=== PATIENT | female | born 1965 | race African-American/Black ===

== ENCOUNTER 2019-02-02 09:39 | Emergency (ER) | payer MEDICARE, MEDICAID ==
[~2019-02-02] VITALS: Ht 170.2 cm; Wt 126.0 kg
[2019-02-02] MEDS ORDERED: CLOP75TA16 PO (09:46)
[2019-02-02 11:45] VITALS: BP 138/61
[2019-02-02] MEDS ORDERED: KETOROLAC 30MG/ML VIAL IV ONE (11:45)
[2019-02-02] MEDS ORDERED: METOCLOPRAMIDE HCL 10MG TABLET PO ONE (11:45)
[2019-02-02] MEDS ORDERED: METOCLOPRAMIDE HCL 10MG/2ML VIAL IV ONE (11:45)
[2019-02-02] MEDS ORDERED: IBUPROFEN 800MG TABLET PO ONE (11:45)
[2019-02-02] MEDS ORDERED: ACETAMINOPHEN 325MG TABLET PO ONE (12:00)
== END 2019-02-02 12:23 | disposition home or self-care (01) ==
LOC: ER 09:39
DX: S09.8XXA Other specified injuries of head, initial encounter (principal); E11.9 Type 2 diabetes mellitus without complications; I10 Essential (primary) hypertension; Z86.73 Personal history of transient ischemic attack (TIA), and cerebral infarction without residual deficits; Z79.899 Other long term (current) drug therapy; W10.9XXA Fall (on) (from) unspecified stairs and steps, initial encounter; Y93.01 Activity, walking, marching and hiking; Y92.89 Other specified places as the place of occurrence of the external cause; Y99.8 Other external cause status
CPT/HCPCS: 70450; 82962; 99284; J8597

== ENCOUNTER 2024-03-28 02:02 | Emergency (ER) | payer OTHER, MEDICAID ==
[~2024-03-28] VITALS: Ht 165.1 cm; Wt 114.0 kg
[~2024-03-28 02:02] MED LIST: CLOP-31 PO; KEPP500 PO
[2024-03-28 02:07] VITALS: O2SAT 99
[2024-03-28] MEDS ORDERED: MORPHINE SULFATE 4 MG/ML INJ (FOR IV/IM USE) IV STA (02:20)
[2024-03-28] MEDS ORDERED: SODIUM CHLORIDE 0.9% 1,000 ML IV ONE (02:30)
[2024-03-28] MEDS: MORPHINE SULFATE 4 MG/ML INJ (FOR IV/IM USE) IV NR (06:00)
[2024-03-28 06:21] LABS: INR 1.1; PROTHROMBIN TIME 11.8 sec (9.6-11.0)
[2024-03-28 06:28] LABS: BASOPHILS % 1.1 % (0.0-2.0); EOSINOPHILS % 1.2 % (0.0-5.0); HEMATOCRIT. 29.5 % (36.0-48.0); HEMOGLOBIN. 9.5 g/dL (12.0-16.0); MEAN CORPUSCULAR HEMOGLOBIN 27.4 pg (28.0-32.0); MEAN CORPUSCULAR HGB CONC 32.2 g/dL (31.0-37.0); MEAN CORPUSCULAR VOLUME 85.2 fL (81.0-99.0); MEAN PLATELET VOLUME 8.2 fl (7.4-10.4); MONOCYTES % 11.3 % (2.0-8.0); NEUTROPHILS % 72.4 % (40.0-76.0); PLATELET 275 x1000/uL (130-400); RED BLOOD CELL COUNT 3.47 mill/uL (4.2-5.4); RED CELL DISTRIBUTION WIDTH 19.1 % (11.6-14.6); WHITE BLOOD COUNT 7.5 x1000/uL (4.5-11.0)
[2024-03-28 06:31] LABS: CARBON DIOXIDE 28 mEq/L (21-32); CHLORIDE 103 mEq/L (98-107); POTASSIUM 3.7 mEq/L (3.5-5.1); SODIUM 140 mEq/L (136-145)
[2024-03-28 06:32] LABS: CALCIUM 8.9 mg/dL (8.7-10.4)
[2024-03-28 06:36] LABS: GLUCOSE 172 mg/dL (70-105)
[2024-03-28 06:37] LABS: UREA NITROGEN BLOOD 18 mg/dL (9-23)
[2024-03-28 06:38] LABS: ALANINE AMINOTRANSFERASE 9 IU/L (10-49); ALBUMIN 3.6 g/dL (3.2-4.8); ASPARTATE AMINOTRANSFERASE 15 IU/L (<34)
[2024-03-28 06:39] LABS: BILIRUBIN DIRECT 0.2 mg/dL (<=3.0); BILIRUBIN TOTAL 0.4 mg/dL (0.1-1.0); PROTEIN TOTAL 6.4 g/dL (6.0-8.3)
[2024-03-28 07:17] LABS: CREATININE 3.6 mg/dL (0.6-1.0)
[2024-03-28 07:21] LABS: TROPONIN I HIGH SENSITIVITY 161 ng/L (3.0-34)
[2024-03-28 11:09] VITALS: BP 110/52; PULSE 96; RESP 16; TEMP 98.6
== END 2024-03-28 11:25 | disposition home or self-care (01) ==
LOC: ER 02:02
DX: R10.9 Unspecified abdominal pain (principal); E11.9 Type 2 diabetes mellitus without complications; I10 Essential (primary) hypertension; J45.909 Unspecified asthma, uncomplicated; Z88.6 Allergy status to analgesic agent; Z86.73 Personal history of transient ischemic attack (TIA), and cerebral infarction without residual deficits; W06.XXXA Fall from bed, initial encounter; Y93.9 Activity, unspecified; Y92.89 Other specified places as the place of occurrence of the external cause; Y99.8 Other external cause status
CPT/HCPCS: 99285; 70450; 96374; 71045; 80076; 80048; 83690; 85025; 85610; 84484; 36415; 74176; 93005; J2270; J7030

== ENCOUNTER 2024-06-13 08:46 | Inpatient (IN) | payer OTHER, MEDICAID, MEDICARE ==
[2024-06-13] VITALS (12 sets, daily range): BP systolic 80–150; BP diastolic 45–129; PULSE 90–126; RESP 21–37; TEMP 36.6696–37.72524; O2SAT 97–100
[~2024-06-13] VITALS: Ht 152.4 cm; Wt 82.1 kg
[~2024-06-13 08:46] MED LIST changes: +AMIT10TA6 PO; +APIX5TAB PO; +ATOR40TA70 PO; +CARV3.1242 PO; -CLOP-31 PO; +FURO80TA3 PO; -KEPP500 PO; +LEVE500T19 PO
[2024-06-13] MEDS ORDERED: LIDOCAINE HCL 1% 10 MG/ML 10ML VIAL ONE (10:32)
[2024-06-13] MEDS: LORAZEPAM 0.5MG TABLET PO ONE (12:13)
[2024-06-13 12:33] LABS: CHLORIDE 109 mEq/L (98-107); POTASSIUM 5.9 mEq/L (3.5-5.1); SODIUM 137 mEq/L (136-145)
[2024-06-13 12:34] LABS: CARBON DIOXIDE 19 mEq/L (21-32)
[2024-06-13 12:35] LABS: CALCIUM 8.7 mg/dL (8.7-10.4)
[2024-06-13 12:39] LABS: CREATININE 4.3 mg/dL (0.6-1.0); GLUCOSE 160 mg/dL (70-105); UREA NITROGEN BLOOD 13 mg/dL (9-23)
[2024-06-13 12:55] LABS: TROPONIN I HIGH SENSITIVITY 139 ng/L (3.0-34)
[2024-06-13] MEDS: DEXTROSE 50% WATER 50ML SYRINGE IV ONE (14:04)
[2024-06-13] MEDS: ALBUTEROL (0.083%) 2.5MG/3ML NEB HHN ONE (14:05)
[2024-06-13] MEDS: INSULIN REGULAR (HUMULIN R) 1000UNITS/10ML VIAL IV ONE (14:10)
[2024-06-13 14:30] LABS: PROTHROMBIN TIME 11.4 sec (9.6-11.0)
[2024-06-13 14:46] LABS: HEMATOCRIT. 34.6 % (36.0-48.0); HEMOGLOBIN. 10.9 g/dL (12.0-16.0); MEAN CORPUSCULAR HEMOGLOBIN 25.9 pg (28.0-32.0); MEAN CORPUSCULAR HGB CONC 31.5 g/dL (31.0-37.0); MEAN CORPUSCULAR VOLUME 82.3 fL (81.0-99.0); MEAN PLATELET VOLUME 7.8 fl (7.4-10.4); PLATELET 283 x1000/uL (130-400); RED BLOOD CELL COUNT 4.21 mill/uL (4.2-5.4); RED CELL DISTRIBUTION WIDTH 19.8 % (11.6-14.6); WHITE BLOOD COUNT 9.1 x1000/uL (4.5-11.0)
[2024-06-13 14:48] LABS: HEPATITIS B SURFACE ANTIGEN NEGATIVE (Negative)
[2024-06-13 14:56] LABS: DIFFERENTIAL COMMENT 1
[2024-06-13 15:08] LABS: HEPATITIS A AB IGM NEGATIVE (Negative)
[2024-06-13 15:09] LABS: HEPATITIS B CORE AB IGM NEGATIVE (Negative); HEPATITIS C AB NON REACTIVE (Neg) (Negative)
[2024-06-13] MEDS ORDERED: IPRATROPIUM/ALBUTEROL 0.5-3(2.5)MG/3ML NEB NEB PRN (17:15)
[2024-06-13] MEDS ORDERED: DIPHENHYDRAMINE 50MG/ML VIAL IV PRN (17:15)
[2024-06-13] MEDS ORDERED: ACETAMINOPHEN 325MG TABLET PO PRN ×2 (17:15)
[2024-06-13] MEDS ORDERED: ONDANSETRON HCL 4MG/2ML INJ IV PRN (17:15)
[2024-06-13] MEDS ORDERED: GUAIFENESIN 200MG/10ML SUGAR FREE UDC PO PRN (17:15)
[2024-06-13] MEDS ORDERED: CLONIDINE 0.1MG TABLET PO PRN (17:15)
[2024-06-13] MEDS ORDERED: ZOLPIDEM TARTRATE 5MG TABLET PO PRN (17:15)
[2024-06-13] MEDS ORDERED: MAGNESIUM/ALUMINUM HYDROXIDE/SIMETHICONE 30ML UDC PO PRN (17:15)
[2024-06-13 18:15] LABS: PLATELET ESTIMATE NORMAL
[2024-06-13 18:16] LABS: ANISOCYTOSIS 1+; HYPOCHROMASIA 1+; OVALOCYTES 1+
[2024-06-13 18:17] LABS: TARGET CELLS FEW
[2024-06-13] MEDS: LEVETIRACETAM 500MG TABLET PO SCH (20:23)
[2024-06-13] MEDS: MIDODRINE HCL 5MG TABLET PO SCH (20:37)
[2024-06-14] VITALS (18 sets, daily range): BP systolic 88–124; BP diastolic 33–82; PULSE 90–101; RESP 11–29; TEMP 35.61396–37.72524; O2SAT 88–100
[2024-06-14] MEDS: SODIUM CHLORIDE 0.9% 3ML FLUSH IVF SCH (00:37)
[2024-06-14] MEDS: GABAPENTIN 100MG CAPSULE PO SCH (12:06)
[2024-06-14] MEDS ORDERED: NALOXONE HCL 0.4MG/ML VIAL IV PRN (18:15)
[2024-06-14] MEDS: MORPHINE SULFATE 2 MG/ML INJ (NOT FOR IM USE) IV PRN (18:44)
[2024-06-15] VITALS (13 sets, daily range): BP systolic 90–112; BP diastolic 53–71; PULSE 81–87; RESP 13–27; TEMP 36.00288–36.55848; O2SAT 95–100
[2024-06-15 10:24] LABS: CARBON DIOXIDE 26 mEq/L (21-32); CHLORIDE 103 mEq/L (98-107); POTASSIUM 4.1 mEq/L (3.5-5.1); SODIUM 139 mEq/L (136-145)
[2024-06-15 10:25] LABS: CALCIUM 8.7 mg/dL (8.7-10.4)
[2024-06-15 10:29] LABS: ALANINE AMINOTRANSFERASE < 7 IU/L (10-49); ASPARTATE AMINOTRANSFERASE 15 IU/L (<34)
[2024-06-15 10:30] LABS: GLUCOSE 162 mg/dL (70-105); UREA NITROGEN BLOOD 23 mg/dL (9-23)
[2024-06-15 10:31] LABS: ALBUMIN 3.5 g/dL (3.2-4.8)
[2024-06-15 10:32] LABS: BILIRUBIN TOTAL 0.7 mg/dL (0.1-1.0); CREATININE 5.3 mg/dL (0.6-1.0); PROTEIN TOTAL 6.4 g/dL (6.0-8.3)
== END 2024-06-15 21:44 | disposition short-term general hospital (02) | DRG 314 ==
LOC: ER 09:02 → 5EST 09:12 → EDBEDREQ 13:12 → EDBEDREQTM 13:12 → EDBEDREQSVC 13:12
PROVIDERS: ADMIT Student in an Organized Health Care Education/Training Program; ATTEND Internal Medicine
PROC: 06HY33Z Insertion of Infusion Device into Lower Vein, Percutaneous Approach (ICD-10-PCS; principal; 2024-06-13)
PROC: B54BZZA Ultrasonography of Right Lower Extremity Veins, Guidance (ICD-10-PCS; 2024-06-13)
PROC: 5A1D70Z Performance of Urinary Filtration, Intermittent, Less than 6 Hours Per Day (ICD-10-PCS; 2024-06-13)
PROC: 5A09357 Assistance with Respiratory Ventilation, Less than 24 Consecutive Hours, Continuous Positive Airway Pressure (ICD-10-PCS; 2024-06-13)
PROC: 5A1D70Z Performance of Urinary Filtration, Intermittent, Less than 6 Hours Per Day (ICD-10-PCS; 2024-06-14)
DX: T82.868A Thrombosis due to vascular prosthetic devices, implants and grafts, initial encounter (principal); I50.43 Acute on chronic combined systolic (congestive) and diastolic (congestive) heart failure; N18.6 End stage renal disease; J96.01 Acute respiratory failure with hypoxia; I13.2 Hypertensive heart and chronic kidney disease with heart failure and with stage 5 chronic kidney disease, or end stage renal disease; I69.354 Hemiplegia and hemiparesis following cerebral infarction affecting left non-dominant side; I82.622 Acute embolism and thrombosis of deep veins of left upper extremity; D64.9 Anemia, unspecified; E11.22 Type 2 diabetes mellitus with diabetic chronic kidney disease; G40.909 Epilepsy, unspecified, not intractable, without status epilepticus; I25.10 Atherosclerotic heart disease of native coronary artery without angina pectoris; E66.9 Obesity, unspecified; E87.5 Hyperkalemia; Z91.158 Patient's noncompliance with renal dialysis for other reason; I25.2 Old myocardial infarction; Z68.35 Body mass index [BMI] 35.0-35.9, adult; Z86.718 Personal history of other venous thrombosis and embolism; Z99.2 Dependence on renal dialysis; Z79.899 Other long term (current) drug therapy
CPT/HCPCS: 36415; 36556; 71045; 76937; 80048; 80053; 82962; 83880; 84484; 85025; 86705; 86709; 87340; 90935; 93005; 93970; 94640; 94660; 99291; A6261; C1752; C1887; C1893; J1815; J2270; J3490

== ENCOUNTER 2024-07-06 16:32 | Emergency (ER) | payer OTHER, MEDICAID ==
[~2024-07-06] VITALS: Ht 167.6 cm; Wt 100.0 kg
[2024-07-06 16:33] VITALS: O2SAT 100
[2024-07-06] MEDS ORDERED: ONDANSETRON HCL 4MG/2ML INJ IV STA (16:44)
[2024-07-06] MEDS ORDERED: MORPHINE SULFATE 4 MG/ML INJ (FOR IV/IM USE) IV STA (16:44)
[2024-07-06] MEDS ORDERED: SODIUM CHLORIDE 0.9% 1,000 ML IV ONE (16:45)
[2024-07-06 18:23] LABS: BASOPHILS % 0.5 % (0.0-2.0); EOSINOPHILS % 1.6 % (0.0-5.0); HEMATOCRIT. 33.3 % (36.0-48.0); HEMOGLOBIN. 10.5 g/dL (12.0-16.0); LYMPHOCYTES % 30.1 % (20.0-50.0); MEAN CORPUSCULAR HEMOGLOBIN 26.6 pg (28.0-32.0); MEAN CORPUSCULAR HGB CONC 31.4 g/dL (31.0-37.0); MEAN PLATELET VOLUME 8.3 fl (7.4-10.4); MONOCYTES % 9.6 % (2.0-8.0); NEUTROPHILS % 58.2 % (40.0-76.0); PLATELET 204 x1000/uL (130-400); RED BLOOD CELL COUNT 3.92 mill/uL (4.2-5.4); RED CELL DISTRIBUTION WIDTH 19.6 % (11.6-14.6); WHITE BLOOD COUNT 5.1 x1000/uL (4.5-11.0)
[2024-07-06 18:40] LABS: PROTHROMBIN TIME 10.9 sec (9.6-11.0)
[2024-07-06 18:41] LABS: CHLORIDE 106 mEq/L (98-107); POTASSIUM 4.7 mEq/L (3.5-5.1); SODIUM 141 mEq/L (136-145)
[2024-07-06 18:42] LABS: CARBON DIOXIDE 25 mEq/L (21-32)
[2024-07-06 18:43] LABS: CALCIUM 9.6 mg/dL (8.7-10.4)
[2024-07-06 18:47] LABS: GLUCOSE 191 mg/dL (70-105)
[2024-07-06 18:48] LABS: UREA NITROGEN BLOOD 42 mg/dL (9-23)
[2024-07-06 18:49] LABS: ALANINE AMINOTRANSFERASE 19 IU/L (10-49); ALBUMIN 4.2 g/dL (3.2-4.8); ASPARTATE AMINOTRANSFERASE 24 IU/L (<34)
[2024-07-06 18:50] LABS: BILIRUBIN DIRECT 0.2 mg/dL (<=3.0); BILIRUBIN TOTAL 0.6 mg/dL (0.1-1.0); PROTEIN TOTAL 7.3 g/dL (6.0-8.3)
[2024-07-06 19:02] LABS: CREATININE 5.2 mg/dL (0.6-1.0)
[2024-07-06 19:03] LABS: TROPONIN I HIGH SENSITIVITY 152 ng/L (3.0-34)
[2024-07-06] MEDS ORDERED: MAGNESIUM/ALUMINUM HYDROXIDE/SIMETHICONE 30ML UDC PO ONE (20:30)
[2024-07-06] MEDS ORDERED: FAMOTIDINE 20MG TABLET PO ONE (20:30)
[2024-07-06 20:55] LABS: TROPONIN I HIGH SENSITIVITY 151 ng/L (3.0-34)
[2024-07-07] MEDS ORDERED: MORPHINE SULFATE 4 MG/ML INJ (FOR IV/IM USE) IV NR (01:15)
[2024-07-07] MEDS ORDERED: IPRATROPIUM/ALBUTEROL 0.5-3(2.5)MG/3ML NEB HHN PRN (02:30)
[2024-07-07] MEDS ORDERED: DOCUSATE SODIUM 100MG CAPSULE PO PRN (02:30)
[2024-07-07] MEDS ORDERED: ACETAMINOPHEN 325MG TABLET PO PRN ×2 (02:30)
[2024-07-07] MEDS ORDERED: GUAIFENESIN 200MG/10ML SUGAR FREE UDC PO PRN (02:30)
[2024-07-07] MEDS ORDERED: ONDANSETRON HCL 4MG/2ML INJ IV PRN (02:30)
[2024-07-07] MEDS: MORPHINE SULFATE 4 MG/ML INJ (FOR IV/IM USE) IM ONE (03:11)
[2024-07-07] MEDS: ONDANSETRON 4MG ODT PO NR (03:11)
[2024-07-07] MEDS: MORPHINE SULFATE 4 MG/ML INJ (FOR IV/IM USE) IV NR (03:11)
[2024-07-07] MEDS: FAMOTIDINE 20MG TABLET PO NR (03:12)
[2024-07-07] MEDS: ONDANSETRON HCL 4MG/2ML INJ IV NR (03:12)
[2024-07-07] MEDS: MAGNESIUM/ALUMINUM HYDROXIDE/SIMETHICONE 30ML UDC PO NR (03:52)
[2024-07-07 06:20] LABS: IRON 42 ug/dL (50-170)
[2024-07-07 06:22] LABS: ALANINE AMINOTRANSFERASE 15 IU/L (10-49); ALBUMIN 3.8 g/dL (3.2-4.8); ASPARTATE AMINOTRANSFERASE 20 IU/L (<34); BILIRUBIN DIRECT 0.3 mg/dL (<=3.0); PHOSPHORUS 5.1 mg/dL (2.5-4.9)
[2024-07-07 06:23] LABS: BILIRUBIN TOTAL 0.7 mg/dL (0.1-1.0); PROTEIN TOTAL 6.7 g/dL (6.0-8.3); TOTAL IRON BINDING CAPACITY 192 ug/dl (250-425)
[2024-07-07 06:27] LABS: TROPONIN I HIGH SENSITIVITY 156 ng/L (3.0-34)
[2024-07-07 06:38] LABS: FERRITIN > 1650 ng/mL (10-291)
[2024-07-07 06:39] LABS: VITAMIN B12 SERUM 527 pg/mL (211-911)
[2024-07-07 06:40] LABS: FOLIC ACID (FOLATE) SERUM 9.65 ng/mL (>5.38)
[2024-07-07 07:00] VITALS: BP 132/56; PULSE 89; RESP 16; TEMP 36.11400; O2SAT 100
[2024-07-07] MEDS ORDERED: FUROSEMIDE 40MG TABLET PO SCH (07:15)
[2024-07-07] MEDS ORDERED: LEVETIRACETAM 250MG TABLET PO SCH (09:00)
[2024-07-07] MEDS ORDERED: APIXABAN 5 MG TABLET PO SCH (09:00)
[2024-07-07] MEDS ORDERED: AMLODIPINE 5MG TABLET PO SCH (09:00)
[2024-07-07] MEDS ORDERED: AMITRIPTYLINE 10MG TABLET PO SCH (21:00)
[2024-07-07] MEDS ORDERED: ATORVASTATIN CALCIUM 40MG TABLET PO SCH (21:00)
== END 2024-07-07 07:34 | disposition short-term general hospital (02) ==
LOC: ER 16:32
DX: R10.13 Epigastric pain (principal); R79.89 Other specified abnormal findings of blood chemistry; I12.0 Hypertensive chronic kidney disease with stage 5 chronic kidney disease or end stage renal disease; N18.6 End stage renal disease; Z99.2 Dependence on renal dialysis; Z86.73 Personal history of transient ischemic attack (TIA), and cerebral infarction without residual deficits; Z79.899 Other long term (current) drug therapy
CPT/HCPCS: 99285; 74176; 71045; 80076 ×2; 80048; 83605; 83690; 85025; 85610; 84484 ×2; 36415 ×2; 93005; 96374; 96375; 82607; 82728; 82746; 83540; 83550; 83735; 84100; J7030; J2405; J2270

== ENCOUNTER 2025-02-05 15:36 | Emergency (ER) | payer MEDICAID, MEDICARE, OTHER ==
[~2025-02-05] VITALS: Ht 165.1 cm; Wt 104.0 kg
[~2025-02-05 15:36] MED LIST changes: +OMEP20CA14 PO
[2025-02-05 15:47] VITALS: O2SAT 99
[2025-02-05] MEDS: MORPHINE SULFATE 4 MG/ML INJ (FOR IV/IM USE) IV STA (16:39)
[2025-02-05 16:41] LABS: HEMATOCRIT. 30.8 % (36.0-48.0); MEAN CORPUSCULAR HEMOGLOBIN 27.9 pg (28.0-32.0); MEAN CORPUSCULAR HGB CONC 32.4 g/dL (31.0-37.0); MEAN PLATELET VOLUME 8.6 fl (7.4-10.4); PLATELET 173 x1000/uL (130-400); RED BLOOD CELL COUNT 3.58 mill/uL (4.2-5.4); RED CELL DISTRIBUTION WIDTH 20.4 % (11.6-14.6); WHITE BLOOD COUNT 4.2 x1000/uL (4.5-11.0)
[2025-02-05 16:44] LABS: CARBON DIOXIDE 29 mEq/L (21-32); CHLORIDE 102 mEq/L (98-107); POTASSIUM 3.6 mEq/L (3.5-5.1); SODIUM 141 mEq/L (136-145)
[2025-02-05 16:45] LABS: CALCIUM 10.2 mg/dL (8.7-10.4); DIFFERENTIAL COMMENT 1
[2025-02-05] MEDS ORDERED: VANCOMYCIN 1000MG/250ML 250 ML IV STA (16:45)
[2025-02-05 16:50] LABS: GLUCOSE 215 mg/dL (70-105); UREA NITROGEN BLOOD 19 mg/dL (9-23)
[2025-02-05 16:51] LABS: ALANINE AMINOTRANSFERASE 14 IU/L (10-49)
[2025-02-05 16:52] LABS: ALBUMIN 4.2 g/dL (3.2-4.8); ASPARTATE AMINOTRANSFERASE 17 IU/L (<34); BILIRUBIN DIRECT 0.4 mg/dL (<=3.0); BILIRUBIN TOTAL 1.1 mg/dL (0.1-1.0); INR 1.1; PROTEIN TOTAL 7.5 g/dL (6.0-8.3); PROTHROMBIN TIME 11.6 sec (9.6-11.0)
[2025-02-05 16:56] LABS: CREATININE 4.1 mg/dL (0.6-1.0)
[2025-02-05 16:58] LABS: LACTIC ACID 2.3 mmol/L (0.4-2.0)
[2025-02-05] MEDS: VANCOMYCIN 1GM/200ML PMX (BAXTER) IV NR (17:16)
[2025-02-05 18:51] LABS: ANISOCYTOSIS 2+; PLATELET ESTIMATE NORMAL
[2025-02-05] MEDS: MORPHINE SULFATE 4 MG/ML INJ (FOR IV/IM USE) IV ONE (22:37)
[2025-02-05 22:44] VITALS: BP 107/50; PULSE 87; RESP 15; TEMP 36.4; O2SAT 98
== END 2025-02-05 23:06 | disposition admitted as inpatient to this hospital (09) ==
LOC: ER 15:36
DX: L03.90 Cellulitis, unspecified (principal); I12.0 Hypertensive chronic kidney disease with stage 5 chronic kidney disease or end stage renal disease; N18.6 End stage renal disease; Z88.6 Allergy status to analgesic agent; Z79.899 Other long term (current) drug therapy; Z98.890 Other specified postprocedural states; Z99.2 Dependence on renal dialysis; Z86.73 Personal history of transient ischemic attack (TIA), and cerebral infarction without residual deficits
CPT/HCPCS: 99284; 96365; 96375; 80076; 80048; 83605; 85025; 85610; 87040; 87186; 87077; 36415; 96376; J3370; J2270; 93005